=== PATIENT | male | born 1935 | race Caucasian/White ===

== ENCOUNTER → 2020-03-30 | Outpatient (CLI) | payer OTHER, MEDICARE | LOC: SJCVCIMAG 06:49 | PROVIDERS: ATTEND Internal Medicine Cardiovascular Disease | DX: I45.10 Unspecified right bundle-branch block (principal); I49.3 Ventricular premature depolarization; R00.0 Tachycardia, unspecified; I25.10 Atherosclerotic heart disease of native coronary artery without angina pectoris; I48.0 Paroxysmal atrial fibrillation; I10 Essential (primary) hypertension; E78.00 Pure hypercholesterolemia, unspecified; Z79.899 Other long term (current) drug therapy ==